=== PATIENT | female | born 2005 | race Caucasian/White ===

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

== ENCOUNTER 2023-02-08 22:26 | Emergency (ER) | payer BC, SELFPAY ==
--- NOTE | ~2023-02-08 | XR_ITS ---
EXAMINATION: XR chest 2V Exam Date/Time: 02/08/2023 23:00 [employer]ESS[employer] HISTORY: cough Comparison: None. RESULT: Lines, tubes, and devices: None. Lungs and pleura: Clear. Cardiomediastinal silhouette: Normal. Other: No acute osseous or upper abdominal finding. IMPRESSION: No acute cardiopulmonary process. Reviewed, dictated and finalized at location K. DRESSER
[2023-02-08 22:28] VITALS: BP 154/92; PULSE 110; RESP 16; TEMP 36.7; O2SAT 98
--- NOTE | 2023-02-08 22:32 | ECG_ITS ---
Measurements Intervals [place] Rate: 93 P: 49 MS: 140 QRS: 71 QRSD: 85 T: 5 QT: 329 QTc: 410 Interpretive Statements SINUS RHYTHM NONSPECIFIC T-WAVE ABNORMALITY- INFERIOR LEADS BORDERLINE ECG NO PREVIOUS ECG AVAILABLE FOR COMPARISON Electronically Signed On 02-09-2023 6:54:23 PHARMACY TECHNOLOGIST by Young Noonan D.O.
--- NOTE | 2023-02-08 22:38 | ED.URI ---
HPI - URI/Sore Throat General Chief Complaint: Upper Respiratory Infection Stated Complaint: Chest Pain, cough, SOB Time Seen by Provider: 02/08/23 22:32 Source: patient Mode of arrival: ambulatory Limitations: no limitations History of Present Illness HPI Narrative: This is a 17-year-old female that presents to the emergency department for cold symptoms present since this morning. Reports cough, congestion, sore throat, rhinorrhea, and headache. Reports pain in her chest after coughing. Reports intermittent wheezing. Denies fevers or shortness of breath. Related Data Home Medications Medication Instructions Recorded Confirmed norgestimate 0.25 mg-ethinyl 1 tablet PO DAILY 05/09/22 05/09/22 estradiol 35 mcg tablet (Sprintec (28)) Allergies Allergy/AdvReac Type Severity Reaction Status Date / Time amoxicillin Allergy Unknown Verified 05/09/22 10:43 Review of Systems Review of Systems: CONSTITUTIONAL: Denies fever ENT: Reports sore throat, congestion CARDIOVASCULAR: Reports chest pain. Denies edema. RESPIRATORY: Reports cough. Denies dyspnea. All systems reviewed & are unremarkable except as noted in HPI and below PMFSH Past Medical History Medical History (Updated 02/09/23 @ 00:25 by Alicia Jiménez PA-C) History of depression Social History Social History (Updated 02/08/23 @ 22:39 by Alicia Jiménez PA-C) Smoking status: Never smoker Exam Narrative: GENERAL: Well-appearing, well-nourished, and in no acute distress. HEAD: Normocephalic, atraumatic. EYES: EOMI. ENT: Nares clear, no rhinorrhea or epistaxis. Mucous membranes moist. Oropharynx without tonsillar hypertrophy exudate or other lesions. Bilateral TMs pearly mckenzie non-bulging NECK: Supple. No adenopathy or masses. CHEST: Clear to auscultation. No respiratory distress. No wheezes rales or rhonchi HEART: Regular rate and rhythm. No murmur heard. Normal peripheral pulses. EXTREMITIES: Normal range of motion. No edema. SKIN: Warm, dry, no rash. NEURO: No focal deficits. Alert and oriented x3. PSYCH: Normal mood and affect Course Course Emergency Course: Patient updated on workup and agrees with plan of care Vital Signs Vital signs: Vital Signs Temperature 98.1 F 02/08/23 22:28 Pulse Rate 110 H 11/21/23 22:28 Respiratory Rate 16 02/08/23 22:28 Blood Pressure 154/92 H 02/08/23 22:28 Pulse Oximetry 98 02/08/23 22:28 Oxygen Delivery Room Air 02/08/23 22:28 Temperature 98.1 F 02/08/23 22:28 Pulse Rate 110 H 02/08/23 22:28 Respiratory Rate 16 02/08/23 22:28 Blood Pressure 154/92 H 02/08/23 22:28 Pulse Oximetry 98 02/08/23 22:28 Oxygen Delivery Room Air 02/08/23 22:50 MDM - URI/Sore Throat MDM Narrative Medical decision making narrative: Patient presents to the ER for cold symptoms present today. She is afebrile and nontoxic appearing. Tachycardic upon arrival, this normalized without intervention. Patient was endorsing some chest discomfort, largely after coughing. CBC and metabolic panel without concerning findings. EKG without acute changes in baseline troponin is negative. Influenza, COVID, and RSV screens are negative. Chest x-ray without acute cardiopulmonary abnormality. Patient was updated on workup and agrees with plan of care. She is to follow up with primary provider. She was given warnings to return to the ER Differential Diagnosis Differential diagnosis: Likely upper respiratory infection, viral infection, bronchitis, influenza, pharyngitis and other (covid, pneumonia) Lab Data Attestation: I reviewed the patient's lab results. 02/08/23 22:57 02/08/23 22:58 Labs: Lab Results 02/08/23 02/08/23 02/08/23 Range/Units 22:32 22:57 22:58 WBC 9.3 (4.5-10.0) K/mm3 RBC 5.10 (4.2-5.4) M/mm3 Hgb 13.3 (12.0-15.0) g/dL Hct 41.0 (37.0-47.0) % MCV 80.4 (80-100) fl MCH 26.1 (26-34) pg MCHC 32.4 (32-
[2023-02-08] MEDS: ACETAMINOPHEN 500 MG TABLET 1000 MG PO (22:46)
[2023-02-08 23:14] LABS: Basophils Percent Auto 0.4 % (0.2-1.2); Eosinophils Absolute Auto 0.3 K/mm3 (0-0.3); Eosinophils Percent Auto 3.4 % (0-4.4); Hemoglobin 13.3 g/dL (12.0-15.0); Immature Granulocyte Absolute 0.01 K/mm3 (0.00-0.031); Immature Granulocyte Percent A 0.1 % (0-0.5); Lymphocytes Percent Auto 30.1 % (18.3-44.2); Mean Corpuscular HGB Conc 32.4 g/dl (32-36); Mean Corpuscular Hemoglobin 26.1 pg (26-34); Mean Corpuscular Volume 80.4 fl (80-100); Monocytes Absolute Auto 0.6 K/mm3 (0.1-0.6); Monocytes Percent Auto 6.9 % (2.6-8.5); Neutrophils Absolute Auto 5.5 K/mm3 (1.3-6.7); Neutrophils Percent Auto 59.1 % (45.5-73.1); Platelet Count Result 308 k/mm3 (150-375); White Blood Count 9.3 K/mm3 (4.5-10.0)
[2023-02-08 23:26] LABS: Alanine Aminotransferase 17 U/L (6-35); Albumin Level 4.6 g/dL (3.7-5.6); Alkaline Phosphatase 77 U/L (45-116); Anion Gap 12 mmol/L (8-16); Aspartate Amino Transferase 24 U/L (14-36); Bilirubin,Total 0.4 mg/dL (0.2-1.3); Blood Urea Nitrogen 6 mg/dL (8-21); Calcium 9.7 mg/dL (8.9-10.7); Carbon Dioxide 22 mmol/L (22-30); Chloride 105 mmol/L (98-107); Estimated CRCL calculation 101 ml/min; Estimated Glomerular Filt Rate > 60; Glucose 124 mg/dL (65-110); Potassium 4.1 mmol/L (3.4-5.0); Sodium 139 mmol/L (134-143)
[2023-02-08 23:31] LABS: Influenza A QL RT-PCR Negative (Negative); Influenza B QL RT-PCR Negative (Negative); RSV RNA, RT-PCR Negative (Negative); SARS-CoV-2 RNA PCR Negative (Negative)
[2023-02-08 23:37] LABS: Troponin I < 0.012 ng/mL (0.000-0.034)
[2023-02-09 00:34] VITALS: BP 140/88; PULSE 93; RESP 24; TEMP 36.3; O2SAT 100
== END 2023-02-09 00:35 | disposition home or self-care (01) ==
PROVIDERS: Emergency Medicine; Emergency Provider Physician Assistant
DX: J06.9 Acute upper respiratory infection, unspecified (principal); F32.A Depression, unspecified
CPT/HCPCS: 36415; 71046; 80053; 84484; 85025; 87637; 93005; 99284; A9270

== ENCOUNTER 2023-02-10 09:15 | Emergency (ER) | payer BC, SELFPAY ==
[2023-02-10] VITALS (13 sets, daily range): BP systolic 82–159; BP diastolic 43–99; PULSE 80–115; RESP 18–31; TEMP 36.4; O2SAT 93–100
--- NOTE | 2023-02-10 09:39 | ED.GENADULT ---
HPI - General Adult General Chief complaint: Allergic Reaction Stated complaint: hives Time Seen by Provider: 02/10/23 09:24 History of Present Illness HPI narrative: 17-year-old female presented the wrist department for evaluation an allergic reaction. Patient states yesterday she started developing some facial swelling and hives. Patient did take Benadryl and this did help last night worsened again morning. Patient denies any significant past medical history and denies any previous allergic reactions. Related Data Home Medications Medication Instructions Recorded Confirmed norgestimate 0.25 mg-ethinyl 1 tablet PO DAILY 05/09/22 05/09/22 estradiol 35 mcg tablet (Sprintec (28)) Allergies Allergy/AdvReac Type Severity Reaction Status Date / Time amoxicillin Allergy Unknown Verified 02/10/23 09:25 Review of Systems Review of Systems: All systems reviewed & are unremarkable except as noted in HPI and below PMFSH Past Medical History Medical History (Updated 02/10/23 @ 10:11 by Julius Sarabia MD) History of depression Social History Social History (Updated 02/08/23 @ 22:39 by Alicia Jiménez PA-C) Smoking status: Never smoker Exam Narrative: APPEARANCE: Well appearing, no pain, no distress, well-nourished. HEAD: normocephalic, atraumatic. EYES: PERRLA/EOMI, conjunctivae clear. NOSE: Normal no drainage EARS:TMS clear with good light reflex. THROAT: Pharynx clear, no exudate. NECK: Supple. No adenopathy, no masses. RESPIRATORY: Airway patent, respirations nonlabored. Clear to auscultation bilaterally, no rales, rhonchi, wheezing. CARDIOVASCULAR: Regular rate and rhythm without murmurs rubs or gallops. ABDOMINAL: Soft, nontender, nondistended, normal bowel sounds MUSCULOSKELETAL: Moves all extremities. Strength/ROM intact, No edema, No calf tenderness. NEURO: Alert. Cranial nerves II through XII intact. Good gait. Good coordination SKIN: Hives and urticaria rash on face chest and limbs Course Course Emergency Course: 17-year-old female presents To the emergency department for evaluation of allergic reaction. Patient did feel improved with treatment in hives were improved. Patient was encouraged to take prednisone as directed Benadryl as needed. All questions concerns were addressed patient was well-appearing at time of discharge. Vital Signs Vital signs: Vital Signs Temperature 97.6 F 02/10/23 09:16 Pulse Rate 115 H 02/10/23 09:16 Respiratory Rate 18 02/10/23 09:16 Blood Pressure 141/93 H 02/10/23 09:16 Pulse Oximetry 100 02/10/23 09:16 Oxygen Delivery Room Air 02/10/23 09:16 Temperature 97.6 F 02/10/23 09:16 Pulse Rate 84 02/10/23 11:01 Respiratory Rate 22 H 02/10/23 11:01 Blood Pressure 119/55 L 02/10/23 11:01 Pulse Oximetry 99 02/10/23 11:01 Oxygen Delivery Room Air 02/10/23 09:16 Medical Decision Making Vital Signs Vital Signs: Vital Signs Temperature 97.6 F 02/10/23 09:16 Pulse Rate 115 H 02/10/23 09:16 Respiratory Rate 18 02/10/23 09:16 Blood Pressure 141/93 H 02/10/23 09:16 Pulse Oximetry 100 02/10/23 09:16 Oxygen Delivery Room Air 02/10/23 09:16 Temperature 97.6 F 02/10/23 09:16 Pulse Rate 84 02/10/23 11:01 Respiratory Rate 22 H 02/10/23 11:01 Blood Pressure 119/55 L 02/10/23 11:01 Pulse Oximetry 99 02/10/23 11:01 Oxygen Delivery Room Air 02/10/23 09:16 Lab Data Lab results reviewed: Yes I reviewed the patient's lab results. Labs: UCG Bedside Result Negative Reference Range: Negative Discharge Plan Discharge Clinical Impression: Allergic reaction, Urticaria Patient Disposition: Home, Self-Care Condition: Stable Instructions: Antibiotic Form, Allergies (ED) Additional Instructions: Prednisone as directed for the next 5 days. Benadryl as needed for intermittent itching and ra
[2023-02-10] MEDS: FAMOTIDINE 20 MG/2 ML VIAL IV PUSH (09:50)
[2023-02-10] MEDS: predniSONE 40 MG, predniSONE 10 MG 50 MG PO (09:50)
[2023-02-10] MEDS: diphenhydrAMINE HCl INJ 50 MG/ML VIAL 25 MG IV PUSH (09:50)
[2023-02-10] MEDS: SODIUM CHLORIDE 0.9% IV 1,000 ML 999 ML IV CONT (10:25)
== END 2023-02-10 11:04 | disposition home or self-care (01) ==
PROVIDERS: Emergency Provider Emergency Medicine
DX: L50.0 Allergic urticaria (principal)
CPT/HCPCS: 81025; 96361; 96374; 96375; 99284; J1200; J7030; J7512